=== PATIENT | male | born 1995 | race Caucasian/White ===

== ENCOUNTER 2024-04-22 10:14 | Emergency (ER) | payer SELFPAY ==
[2024-04-22 10:15] VITALS: BP 148/69
--- NOTE | 2024-04-22 11:15 | ED.GENMED ---
History of Present Illness
General
Chief Complaint: Musculo-Skeletal Complaint
Source: patient
Exam Limitations: none
Time Seen by Provider: 04/22/24 10:44
Nursing documentation reviewed up to this point in time: agreed with
History of Present Illness
History of Present Illness:
Patient is a 28 yr old male presents to the ED c/o of left foot pain after crush injury at work. He was crushed by a piece of machinery. He denies any lacerations/abrasions.
Review of Systems
Review of Systems
Allergies reviewed?: Yes
All Other Systems: ROS reviewed and negative except as documented in HPI and ROS
Constitutional: Reports no symptoms
Musculoskeletal: Reports other (left foot pain )
Skin: Reports no symptoms
Psychiatric: Reports no symptoms
Phy Exam
General Physical Exam
General Presentation: no apparent distress
General age: appears stated age
General Skin: warm and dry
General Habitus: normal
General Mental: alert
General Hydration: appears well hydrated
Neurological Exam
Neurological Exam: alert and oriented x3
Musculoskeletal Exam
Musculoskeletal Exam: other (Left lower extremity strong pulses mild swelling scattered redness however no break in skin, no bony tenderness to the ankle mildly tender to the dorsal region no calf tenderness)
Skin Exam
Skin Exam: normal color and warm/dry
Psychiatric Exam
Psychiatric Exam: normal mood/affect
Course
Orders/Labs/Results
Orders:
Orders
04/22/24 10:17
Foot, Left 3 View [CR Foot - Left Min 3 Views] Urgent
Comment:
Reason For Exam: crush injury
04/22/24 11:06
Crutches-Treatment ONCE
04/22/24 11:15
Alon Wrap Left-Treatment ONCE
Cast Shoe Left-Treatment ONCE
Vital Signs
Initial and Last Documented VS:
Initial Vital Signs
Temp Pulse Resp BP Pulse Ox
98.5 F 72 18 148/69 99
04/22/24 10:15 04/22/24 10:15 04/22/24 10:15 04/22/24 10:15 04/22/24 10:15
Last Documented Vital Signs
Temp Pulse Resp BP Pulse Ox
98.5 F 72 18 148/69 99
04/22/24 10:15 04/22/24 10:15 04/22/24 10:15 04/22/24 10:15 04/22/24 10:15
MDM/Problems Addressed
Differential Diagnosis Includes:
Not limited to fracture wrist contusion
MDM/Problems Addressed:
Symptoms are consistent with contusion will DC with crutches Alon wrap and cast for support with outpatient follow-up with Ortho if needed
*Radiology
Radiology exam reviewed: radiology read reviewed
*Critical Care Note
Total Time (30-74mins, 75-104mins- exclusive of procedures): Not Applicable
ED Attending Note
-
Portions of this chart may have been created with voice recognition software.� Occasional wrong word or��sound alike� substitutions may have occurred due to the inherent limitations of voice recognition software.
Discharge Plan
Departure
Patient Disposition: Home (Routine Discharge)
Date of Disposition: 04/22/24
Time of Disposition: 11:23
Patient with high blood pressure during this ER visit?: Yes
Condition: Fair
Covid-19: Not Applicable
Discharge Problem:
Contusion
Instructions: Contusion (DC)
Referrals:
Minh Cyr MD [Active] -
Activity Restrictions/Additional Instructions:
Ice the affected area for the next 24 hours 20 minutes at a time several times a day. Keep elevated as much as possible
Use crutches for support for the next several days. Alon area for swelling for the next 24 to 48 hours throughout the day but remove at night while sleeping. In addition you were given a cast shoe for support when you do ambulate.
Follow-up with orthopedics in extremities as needed return if any worsening of symptoms.
Interventions
Interventions:
*Risk Screen - Suicide Last Done: 04/22/24 10:15
*General Assessment Last Done: 04/22/24 10:15
*Neglect/Abuse Screening Last Done: 04/22/24 10:15
Discharge Date and Time
Print Language: CAMEROONIAN
== END 2024-04-22 11:25 | disposition home or self-care (01) ==
LOC: EMR 10:14
PROVIDERS: EMERGENCY PHYSICIAN Emergency Medicine
DX: S90.32XA Contusion of left foot, initial encounter (principal); W23.0XXA Caught, crushed, jammed, or pinched between moving objects, initial encounter; Y99.0 Civilian activity done for income or pay
CPT/HCPCS: 99283; 73630